=== PATIENT | female | born 1990 | race Two or more races ===

== ENCOUNTER 2022-05-09 09:31 | Outpatient (CLI) | payer OTHER, SELFPAY ==
[2022-05-09 10:03] LABS: Basophils Absolute Auto 0.1 K/mm3 (0.0-0.1); Basophils Percent Auto 0.6 % (0.2-1.2); Eosinophils Absolute Auto 0.1 K/mm3 (0-0.3); Eosinophils Percent Auto 1.3 % (0-4.4); Hematocrit 36.9 % (37.0-47.0); Hemoglobin 12.6 g/dL (12.0-15.0); Immature Granulocyte Absolute 0.03 K/mm3 (0.00-0.031); Immature Granulocyte Percent A 0.3 % (0-0.5); Lymphocytes Absolute Auto 1.43 K/mm3 (0.9-3.2); Lymphocytes Percent Auto 15.3 % (18.3-44.2); Mean Corpuscular HGB Conc 34.1 g/dl (32-36); Mean Corpuscular Hemoglobin 31.4 pg (26-34); Mean Platelet Volume 8.7 fl (7.4-10.4); Monocytes Absolute Auto 0.8 K/mm3 (0.1-0.6); Monocytes Percent Auto 8.1 % (2.6-8.5); Neutrophils Percent Auto 74.4 % (45.5-73.1); Platelet Count Result 277 k/mm3 (150-375); Red Blood Count 4.01 M/mm3 (4.2-5.4); Red Cell Distribution Width 11.8 % (11.5-14.5); White Blood Count 9.4 K/mm3 (4.5-10.0)
[2022-05-09 10:53] LABS: Hepatitis B Surface Antigen Negative (Negative)
[2022-05-09 10:54] LABS: HIV 1/2 Ab P24 Ag Result Negative (Negative)
[2022-05-09 15:32] LABS: Rapid Plasma Reagin Non-Reactive (NonReactive)
[2022-05-09 21:24] LABS: Rubella IgG Antibody > 120.0 IU/ML
[2022-05-11 16:35] LABS: CMV IgG Antibody >10.00 U/mL (<0.60)
[2022-05-17 22:06] LABS: CF Result NEGATIVE (NEGATIVE)
[2022-05-18 01:08] LABS: SMA 2.0 RISK VARIANT NOT DETECTED
[2022-05-25 15:49] LABS: SMA Results Received Yes
== END 2022-05-09 09:32 | disposition home or self-care (01) ==
PROVIDERS: PCP Student in an Organized Health Care Education/Training Program; Visit Provider Student in an Organized Health Care Education/Training Program
DX: N94.89 Other specified conditions associated with female genital organs and menstrual cycle (principal)
CPT/HCPCS: 36415; 81220; 81329; 84702; 85025; 86592; 86644; 86703; 86747; 86762; 86787; 86850; 86900; 86901; 87077; 87086; 87186; 87340; G0432

== ENCOUNTER 2022-11-16 01:09 | Inpatient (IN) | payer OTHER, BC, SELFPAY ==
[2022-11-16] VITALS (75 sets, daily range): BP systolic 83–129; BP diastolic 42–78; PULSE 67–104; RESP 14–20; TEMP 36.3–37.1; O2SAT 97–100; BMI 26.4
[2022-11-16] MEDS: NIFEdipine 10 MG CAPSULE PO (02:13)
[2022-11-16 02:36] LABS: Basophils Percent Auto 0.4 % (0.2-1.2); Eosinophils Absolute Auto 0.1 K/mm3 (0-0.3); Eosinophils Percent Auto 1.5 % (0-4.4); Hematocrit 33.9 % (37.0-47.0); Hemoglobin 11.9 g/dL (12.0-15.0); Immature Granulocyte Absolute 0.05 K/mm3 (0.00-0.031); Immature Granulocyte Percent A 0.5 % (0-0.5); Lymphocytes Absolute Auto 1.53 K/mm3 (0.9-3.2); Lymphocytes Percent Auto 16.7 % (18.3-44.2); Mean Corpuscular HGB Conc 35.1 g/dl (32-36); Mean Corpuscular Hemoglobin 32.9 pg (26-34); Mean Corpuscular Volume 93.6 fl (80-100); Mean Platelet Volume 9.5 fl (7.4-10.4); Monocytes Absolute Auto 0.7 K/mm3 (0.1-0.6); Monocytes Percent Auto 7.5 % (2.6-8.5); Neutrophils Absolute Auto 6.7 K/mm3 (1.3-6.7); Neutrophils Percent Auto 73.4 % (45.5-73.1); Platelet Count Result 189 k/mm3 (150-375); Red Blood Count 3.62 M/mm3 (4.2-5.4); Red Cell Distribution Width 12.3 % (11.5-14.5); White Blood Count 9.2 K/mm3 (4.5-10.0)
[2022-11-16 02:52] LABS: INR 0.9; Partial Thromboplastin Time 28.6 SECONDS (22.3-36.8); Prothrombin Time 12.8 Seconds (11.1-14.7)
[2022-11-16] MEDS: TERBUTALINE SULFATE 1 MG/ML VIAL 0.25 MG SUB-Q (06:12)
--- NOTE | 2022-11-16 06:21 | PC.NURSE ---
Dr. Lindsay updated on this pt. ordered ultrasound on the pt. Order obtained for Celestone and LR bolus. Additional dose of terbutaline available if pt continues hortensia. Dr. Lindsay to come in and see the pt.
[2022-11-16] MEDS: BETAMETHASONE SOD PHOS/ACETATE 30 MG/5 ML VIAL 12 MG IM (06:29)
[2022-11-16] MEDS: LACTATED RINGERS 1,000 ML 999 ML IV CONT (06:29)
--- NOTE | 2022-11-16 07:11 | PM.IMHP ---
H&P: HPI History of Present Illness Date/Time: 11/16/22 07:11 Chief Complaint: pain and bleeding Narrative: is a 32yo @ 35.1wks who presented with contractions. Shortly after arriving, she started bleeding. She has had approximately 450cc of bleeding. Her is complicated by: - extrapulmonary bronchopulmonary sequestration, managed per MFM/SKILLED NURSING - posterior low lying placenta Review of Systems Constitutional: Constitutional: Denies fever(s) Eyes: Eyes: Denies change in vision Cardiovascular: Cardiovascular: Denies chest pain Respiratory: Respiratory: Denies dyspnea Genitourinary: Genitourinary: Reports pelvic pain Comments: + vaginal bleeding PMFSH Past Medical History Medical History Suppression of menses Family History Family History Mother Cerebrovascular accident Hypertension Other Malignant neoplasm of ovary Social History Social History (Updated 08/01/22 @ 09:12 by CRYSTAL Dumont) Smoking status: Never smoker Alcohol intake: never Substance use: never Substance use type: does not use Living arrangements: other Additional living arrangements comments: Additional occupation/education comments: RN Gender identity (if verbalized by the patient): Female Sexual Orientation (if Verbalized by the Patient): Straight or Heterosexual Meds Home Medications and Allergies Home Medications Medication Instructions Recorded Confirmed Type No Home Medications 06/06/22 11/01/22 History Allergies Allergy/AdvReac Type Severity Reaction Status Date / Time No Known Allergies Allergy Verified 11/13/22 09:18 Vital Signs Vital Signs - 24 hr 11/16/22 01:23 11/16/22 01:30 11/16/22 01:45 Pulse Rate 76 74 67 Blood Pressure 119/74 110/68 113/65 11/16/22 02:00 11/16/22 02:15 11/16/22 02:30 Pulse Rate 84 74 73 Blood Pressure 111/77 113/70 111/66 11/16/22 02:45 11/16/22 03:00 11/16/22 03:15 Pulse Rate 77 80 72 Blood Pressure 108/62 113/72 110/62 11/16/22 03:46 11/16/22 04:00 11/16/22 04:15 Pulse Rate 76 71 67 Blood Pressure 83/59 L 100/68 107/71 11/16/22 04:30 11/16/22 04:45 11/16/22 05:00 Pulse Rate 67 68 80 Blood Pressure 99/60 L 103/66 105/76 11/16/22 05:15 11/16/22 05:30 11/16/22 05:45 Pulse Rate 67 70 76 Blood Pressure 102/63 100/62 113/75 11/16/22 06:00 11/16/22 06:45 11/16/22 07:01 Pulse Rate 71 85 92 Blood Pressure 110/62 126/58 L 128/62 Exam Const: General: cooperative, healthy appearing, comfortable and no acute distress Resp: Effort & Inspection: normal respiratory effort Cardio: Rate: regular rate GI: GI Palp: No abdominal tenderness : Speculum Exam - Vagina: vaginal bleeding (~100cc of blood) H&P: Results Labs Labs: Short CBC 11/16/22 Range/Units 02:15 WBC 9.2 (4.5-10.0) K/mm3 Hgb 11.9 L (12.0-15.0) g/dL Hct 33.9 L (37.0-47.0) % Plt Count 189 (150-375) k/mm3 Assessment and Plan Assessment and plan (1) Low lying placenta with hemorrhage in third trimester, antepartum: Code(s): O44.53 - Low lying placenta with hemorrhage, third trimester Status: Acute Plan - s/p IV fluids, terb, ANCS x1 - blood work sent and stable - but patient still actively bleeding - Proceed with emergent due to vaginal bleeding in a posterior low lying placenta - pedi notified and requested for delivery
[2022-11-16] MEDS: LACTATED RINGERS 1,000 ML 125 ML IV CONT (07:15)
--- NOTE | 2022-11-16 07:15 | WPDANESEPPF ---
Anes - Initial Pre Proc Eval Procedure: Operation Date: 11/16/22 07:30 Proposed Procedures p Section - Farheen Lindsay MD Date/Time: 11/16/22 07:15 Surgeon: Farheen Lindsay MD Pre Op Diagnosis: Vaginal Bleeding Patient Data Age: 32 Gender: F Height: Weight: Last Vital Signs Pulse 92 11/16/22 07:01 BP 128/62 11/16/22 07:01 Allergies Allergy/AdvReac Type Severity Reaction Status Date / Time No Known Allergies Allergy Verified 11/13/22 09:18 Home Medications Medication Instructions Recorded Confirmed Type No Home Medications 06/06/22 11/01/22 History Laboratory Tests 11/16/22 11/16/22 02:15 06:28 WBC 9.2 K/mm3 (4.5-10.0) RBC 3.62 L M/mm3 (4.2-5.4) Hgb 11.9 L g/dL (12.0-15.0) Hct 33.9 L % (37.0-47.0) MCV 93.6 fl (80-100) MCH 32.9 pg (26-34) MCHC 35.1 g/dl (32-36) RDW 12.3 % (11.5-14.5) Plt Count 189 k/mm3 (150-375) MPV 9.5 fl (7.4-10.4) Immature Gran % (Auto) 0.5 % (0-0.5) Neut % (Auto) 73.4 H % (45.5-73.1) Lymph % (Auto) 16.7 L % (18.3-44.2) [place] % (Auto) 7.5 % (2.6-8.5) Eos % (Auto) 1.5 % (0-4.4) Baso % (Auto) 0.4 % (0.2-1.2) Lymph # (Auto) 1.53 K/mm3 (0.9-3.2) [place] # (Auto) 0.7 H K/mm3 (0.1-0.6) Eos # (Auto) 0.1 K/mm3 (0-0.3) Baso # (Auto) 0.0 K/mm3 (0.0-0.1) Abs Immat Gran (auto) 0.05 H K/mm3 (0.00-0.031) Absolute Neuts (auto) 6.7 K/mm3 (1.3-6.7) Absolute Nucleated RBC 0.0 K/mm3 (0.0-0.012) Nucleated RBC % 0.0 % (0.0-0.2) PT 12.8 Seconds (11.1-14.7) INR 0.9 APTT 28.6 SECONDS (22.3-36.8) RPR Pending Patient hx anesthesia problems: none Family hx anesthesia problems: none Results Review: All pre-operative results and documents have been reviewed as part of the pre-operative evaluation. [facility] Past Medical History Medical History Suppression of menses Family History Family History Mother Cerebrovascular accident Hypertension Other Malignant neoplasm of ovary Social History Social History Smoking status: Never smoker Alcohol intake: never Substance use: never Substance use type: does not use Living arrangements: other Additional living arrangements comments: Additional occupation/education comments: RN Gender identity (if verbalized by the patient): Female Sexual Orientation (if Verbalized by the Patient): Straight or Heterosexual Anes - Eval Final PreProcedure Day of Procedure 11/16/22 07:15 Patient weight: normal Heart: regular rate and rhythm Lungs: clear to auscultation Airway: Mallampati scale class 1 Neurological: alert and oriented Last oral intake: >/= 8 hours ASA classification: II Emergent: no Anesthetic plan: proceed Anesthesia type and monitoring: regional spinal and standard monitoring Results Review: All pre-operative results and documents have been reviewed as part of the pre-operative evaluation. Informed Consent: The patient's anesthetic plan and its attendant risks including GA ang spinal anesthesia and benefits were discussed with the patient/family/POA and Dr. Lindsay. Questions were solicited and answers provided to the satisfaction of the patient/family/POA.
--- NOTE | 2022-11-16 07:18 | WPDHPUPDATE1 ---
History and Physical Update Update Date/Time: 11/16/22 07:18 History and Physical has been reviewed, including an updated exam of the patient. There are NO changes in the patient's condition. Risks, benefits, and alternatives have been discussed and questions answered. Patient agrees to proceed with procedure.
[2022-11-16] MEDS: ceFAZolin 2 GM/D5W 50 ML 2 GM/50 ML BAG IVPB (07:21)
[2022-11-16] MEDS: miSOPROStol 200 MCG TABLET 800 MCG RECTAL (08:24)
--- NOTE | 2022-11-16 08:26 | P.PCNOB_ITS ---
OB - Delivery Note Procedure Delivery date: 11/16/22 Procedure: Procedures Operation Date: 11/16/22 07:30 <No data on this case meets the specified criteria> Events: Placenta Previa (with ~450cc of vaginal bleeding pre-op) Route of delivery: Specimen: Yes (placenta) Quantitative Blood Loss (ml): 1,000 Anesthesia type: Spinal Disposition: PACU Baby Date of : 11/16/22 Time of : 07:43 Weeks of gestation at delivery: 35 (.1) Infant gender: Female presentation: vertex Placenta delivery description: Expressed Cord Vessel Description: 3 Vessels and Delayed Cord Clamping score one minute: 4 score five minutes: 7 Narrative: She was counseled on all risks and benefits in detail. She was taken to the operating room where spinal was placed. She was then prepped and draped in the normal sterile fashion. She received 2g Ancef and a time out was performed. A Pfannenstiel incision was made in the skin and carried down to the underlying fascia. The fascia was nicked on either side of the midline and the fascial incision was extended laterally and superiorly using curved Gilmore scissors. The fascia was then elevated using Ashley clamps and the underlying rectus muscles were dissected off the fascia, superiorly and inferiorly. The rectus muscles were then in the midline and the peritoneum was entered bluntly. Once adequate exposure was obtained, a Mobius self retractor was placed within the abdomen. A low transverse incision was made on the lower uterine segment and clear fluid was noted. The occiput was brought to the hysterotomy and the head was easily delivered. Nuchal cord was reduced. The shoulders and body then followed without complications. The infant had spontaneous cry and the mouth and nose were bulb suctioned. The cord was then clamped and cut and the was handed off to the awaiting pediatric team. A segment of the cord was collected for cord gases. With pitocin infusing, the placenta deli jacky with gentle traction on the cord without complications. The uterus was then cleared out of all clots and debris using a clean, moist lap. Diffuse bleeding from atony was noted The hysterotomy was then repaired in a running, interlocking fashion using 0 Vicryl. Methergine was given to help with atony and better tone with less bleeding was noted. A second layer imbricating suture was then made using 0 Vicryl. The hysterotomy was found to be hemostatic and good uterine tone was noted. The bilateral adnexa were examined and a significant amount of brown endometriosis was noted on the anterior uteru, fallopian tubes, and ovaries. The pelvis was cleared of all clots and fluid. The Mobius retractor was removed from the abdomen. The peritoneum, muscle, and fascia were examined and made hemostatic with bovie cautery. The fascia was then repaired using a 0 Vicryl suture in a running fashion. The subcutaneous tissue was then irrigated and made hemostatic with bovie cautery. The subcutaneous tissue was then reapproximated using 2-0 Vicryl. The skin was then closed using 4-0 Monocryl in a running subcuticular fashion. A Mepilex dressing was placed over the incision. Sponge, lap, needle and instrument counts were correct at the end of the procedure x2. The patient tolerated the procedure well and was taken to recovery in a stable condition. Misoprostol 800mcg was placed at the end of the case to prevent further atony. [facility] Delivery Billing Delivery Delivery: Delivery Charge
[2022-11-16 09:01] LABS: Rapid Plasma Reagin Non-Reactive (NonReactive)
[2022-11-16] MEDS: OXYTOCIN 30 UNITS/NS 500 ML 30 UNITS/500 ML BAG 125 UNITS IV CONT (09:13)
--- NOTE | 2022-11-16 10:35 | PC.NURSE ---
Pt to nursery to visit with baby before moving upstairs to room 279.
[2022-11-16] MEDS: ONDANSETRON INJ 4 MG/2 ML VIAL IV PUSH ×3 (10:40→22:06)
--- NOTE | 2022-11-16 11:00 | PC.NURSE ---
Patient transferred to post room #279 via stretcher. Support person present. Oriented to unit, room, information board, rooming in, admission packet and security measures. Patient verbalizes understanding.
[2022-11-16] MEDS: DEXTROSE 5%/0.45% SOD CHL 1,000 ML 125 ML IV CONT (13:42)
[2022-11-16] MEDS: diphenhydrAMINE HCl INJ 50 MG/ML VIAL 25 MG IV PUSH (13:52)
--- NOTE | 2022-11-16 18:34 | PC.NURSE ---
Pt. refused Toradol, denies pain.
[2022-11-16] MEDS: KCL 20 MEQ/D5/0.45% SOD CHL 1,000 ML 125 ML IV CONT (21:45)
[2022-11-17 00:10] VITALS: BP 96/57; PULSE 61; RESP 12; TEMP 36.7; O2SAT 97
[2022-11-17] MEDS: KETOROLAC 30 MG/ML VIAL (*BKC) IV PUSH (04:47)
[2022-11-17 05:44] LABS: Basophils Absolute Auto 0.1 K/mm3 (0.0-0.1); Basophils Percent Auto 0.4 % (0.2-1.2); Eosinophils Absolute Auto 0.1 K/mm3 (0-0.3); Eosinophils Percent Auto 0.3 % (0-4.4); Hematocrit 30.3 % (37.0-47.0); Hemoglobin 10.3 g/dL (12.0-15.0); Immature Granulocyte Absolute 0.16 K/mm3 (0.00-0.031); Immature Granulocyte Percent A 0.8 % (0-0.5); Lymphocytes Absolute Auto 0.98 K/mm3 (0.9-3.2); Lymphocytes Percent Auto 4.8 % (18.3-44.2); Mean Corpuscular Hemoglobin 32.5 pg (26-34); Mean Corpuscular Volume 95.6 fl (80-100); Mean Platelet Volume 9.7 fl (7.4-10.4); Monocytes Absolute Auto 1.4 K/mm3 (0.1-0.6); Monocytes Percent Auto 6.8 % (2.6-8.5); Neutrophils Absolute Auto 17.7 K/mm3 (1.3-6.7); Neutrophils Percent Auto 86.9 % (45.5-73.1); Platelet Count Result 201 k/mm3 (150-375); Red Blood Count 3.17 M/mm3 (4.2-5.4); Red Cell Distribution Width 12.1 % (11.5-14.5); White Blood Count 20.4 K/mm3 (4.5-10.0)
--- NOTE | 2022-11-17 07:38 | WPDANLDNPN2 ---
Anes-Prog Note L&D-Neuraxial Date/Time: 11/17/22 07:38 Neuraxial medications: epidural PF morphine Opiod-related complaints: none Patient feedback: Patient satisfied with post-operative pain management.
--- NOTE | 2022-11-17 07:39 | WPDANLDPN2 ---
Anes-Prog Note L&D Date/Time: 11/17/22 07:39 Comfortable throughout: section Neuraxial method: spinal Epidural/Spinal procedure site: clean & non-tender Neuro status: Neuro function grossly intact. Cardiovascular status: normal Respiratory status: normal Airway patency: baseline Mental status: baseline Post-Op hydration status: normal Vital Signs: Last Vital Signs Temp 36.7 C 11/17/22 00:10 Pulse 61 11/17/22 00:10 Resp 12 11/17/22 00:10 BP 96/57 L 11/17/22 00:10 Pulse Ox 97 11/17/22 00:10 O2 Del Method Room Air 11/16/22 10:00 Pain score (VAS): 2 I/O: Intake & Output 11/16/22 11/16/22 11/17/22 15:59 23:59 07:59 Intake Total 240 1450 Output Total 1878 2050 1150 Balance -1638 -2050 300 Post-procedural complaints: none Patient feedback: Patient satisfied with anesthetic care.
[2022-11-17 08:00] VITALS: BP 94/59; PULSE 74; RESP 18; TEMP 36.8; O2SAT 100
--- NOTE | 2022-11-17 10:40 | PM.OBPNVD ---
OB - PN: Subj Subjective Date/time seen: 11/17/22 10:40 S: nausea vomiting from last evening has resolved, she has tolerated regular. States her pain level is also well controlled. Minimal bleeding. O: VSS afebrile Abdomen: Positive bowel sounds soft no guarding rebound. Incision covered, no bleeding Labs: Reviewed A: Postoperative day 1 from primary low-transverse section P: Will go see baby today on a pass and back this evening. Likely will be discharged tomorrow. OB - PN: Obj Data Labs 11/17/22 04:18 Labs: Laboratory Results - last 24 hr 11/17/22 04:18 WBC 20.4 H RBC 3.17 L Hgb 10.3 L Hct 30.3 L MCV 95.6 MCH 32.5 MCHC 34.0 RDW 12.1 Plt Count 201 MPV 9.7 Immature Gran % (Auto) 0.8 H Neut % (Auto) 86.9 H Lymph % (Auto) 4.8 L [place] % (Auto) 6.8 Eos % (Auto) 0.3 Baso % (Auto) 0.4 Lymph # (Auto) 0.98 [place] # (Auto) 1.4 H Eos # (Auto) 0.1 Baso # (Auto) 0.1 Abs Immat Gran (auto) 0.16 H Absolute Neuts (auto) 17.7 H Absolute Nucleated RBC 0.0 Nucleated RBC % 0.0 OB - PN A/P Time Spent With Patient Time: Total time spent is greater than 50% in coordination of care (as documented) at patient's floor/unit and/or counseling patient:
[2022-11-17] MEDS: DOCUSATE SODIUM 100 MG CAPSULE PO ×2 (10:59→17:05)
[2022-11-17] MEDS: MULTIVIT/MIN/PREN/FOL AC/IRON TABLET 1 TAB PO (10:59)
[2022-11-17] MEDS: IBUPROFEN 600 MG TABLET PO ×2 (11:00→17:05)
--- NOTE | 2022-11-17 13:31 | PC.NURSE ---
1100-pt refuses [place] at this time; pt took ibuprofen.
--- NOTE | 2022-11-17 13:46 | PC.NURSE ---
1320-Pt left to go on a pass to see baby at [facility].
[2022-11-17] MEDS: LIDOCAINE 5% PATCH 1 PATCH TRANSDERM (17:06)
--- NOTE | 2022-11-17 18:34 | PC.NURSE ---
1650-Pt returned from visiting baby at [facility].
[2022-11-17 19:30] VITALS: BP 100/67; PULSE 74; RESP 16; TEMP 36.6; O2SAT 100
[2022-11-18] MEDS: IBUPROFEN 600 MG TABLET PO ×2 (03:07→10:20)
[2022-11-18] MEDS: SIMETHICONE 80 MG TAB.CHEW PO ×2 (03:08→10:20)
--- NOTE | 2022-11-18 07:46 | PC.NURSE ---
Patient viewed the discharge video Mother & Baby Care, The First Two Weeks . Patient was given the opportunity and encouraged to ask questions. Patient verbalized understanding of information shared and has been given the mother/baby guide for home reference.
[2022-11-18 07:47] VITALS: BP 110/70; PULSE 74; RESP 16; TEMP 36.9; O2SAT 100
[2022-11-18 07:48] VITALS: PULSE 74; RESP 16; O2SAT 100
--- NOTE | 2022-11-18 08:42 | PM.OBDSVD ---
DS: Admitting Diagnosis Discharge Date 11/18/2022 Admitting Diagnosis DS: Discharge Diagnosis Discharge Diagnosis (1) , delivered: Code(s): O80 - Encounter for full-term uncomplicated delivery Status: Acute OB - DS: Summary OB Procedures : None OB Procedures Intrapartum: OB Procedures: : None Peripartum Data Procedures: Procedures Operation Date: 11/16/22 07:30 Actual Procedure Side Surgeon p Section Farheen Lindsay MD Time Spent with Patient Time attestation: Total time spent providing and/or coordinating discharge services: DS: Data Data Completed and Pending Pending studies at discharge: Pending at discharge 11/16/22 07:45 Surgical [PTH] Routine Discharge Plan Discharge Attending physician on discharge: Farheen Lindsay Discharging Clinician: Cliff Hamm Patient Disposition: Home, Self-Care Activity: may shower, may drive after 2 weeks and pelvic rest Diet: regular Discharge Instructions: remove dressing if saturated or by 11/22/22 Patient Instructions: Antibiotic Form Stand Alone Forms: General Discharge Information Follow-up/Referrals: Farheen Lindsay MD [Physician] - 4 Weeks Discharge Medications: New ibuprofen 800 mg tablet 800 mg PO TID Qty: 30 0RF docusate sodium [Colace] 100 mg capsule 100 mg PO BID Qty: 60 0RF acetaminophen 500 mg tablet 1,000 mg PO Q6H PRN (Reason: pain) Qty: 60 0RF hydrocodone-acetaminophen 5-325 mg tablet 1 tablet PO Q3H PRN (Reason: pain) Qty: 30 0RF hydrocodone-acetaminophen 5-325 mg Tablet 1 tablet PO Q3H PRN (Reason: Moderate Pain (4-6)) Qty: 30 0RF ibuprofen 600 mg Tablet 600 mg PO Q6H PRN (Reason: Cramping) Qty: 30 0RF Continued famotidine [Pepcid] 20 mg Tablet 20 mg PO PRN Date of admission: 11/16/22 01:09 Primary Care Provider: PHYSICIAN,GASOLINE CATALYST OPERATOR Admitting Provider: Farheen Lindsay Attending physician on admission: Farheen Lindsay Condition: Stable
[2022-11-18] MEDS: MULTIVIT/MIN/PREN/FOL AC/IRON TABLET 1 TAB PO (10:20)
[2022-11-18] MEDS: DOCUSATE SODIUM 100 MG CAPSULE PO (10:20)
[2022-11-20 10:49] VITALS: BP 120/71; PULSE 90; RESP 18; TEMP 36.8; O2SAT 100
== END 2022-11-18 13:12 | disposition home or self-care (01) | DRG 788 ==
LOC: ANHOBPP 08:49 → ANHOB2 11-18 11:02 → ANHOBPP 11-21 09:20
PROVIDERS: Obstetrics & Gynecology; Admitting Provider Obstetrics & Gynecology; Visit Provider Obstetrics & Gynecology
PROC: 10D00Z1 Extraction of Products of Conception, Low, Open Approach (ICD-10-PCS; CPT 59514; principal; 2022-11-16 07:30)
DX: O44.53 Low lying placenta with hemorrhage, third trimester (principal); Z37.0 Single live birth; Z3A.35 35 weeks gestation of pregnancy; O69.81X0 Labor and delivery complicated by cord around neck, without compression, not applicable or unspecified
CPT/HCPCS: 36415; 85025; 85610; 85730; 86592; 86850; 86900; 86901; 88307; A9270; J0690; J0702; J1200; J1885; J2210; J2274; J2405; J2590; J3105; J3480; J7120